=== PATIENT | female | born 1995 | race Caucasian/White ===

== ENCOUNTER 2021-10-29 04:34 | Inpatient (IN) ==
[2021-10-29] MEDS ORDERED: OXYTOCIN 30 UNITS/500 ML BAG IV PRN ×3 (05:01→16:31)
--- NOTE | 2021-10-29 05:04 | History & Physical Report ---
Date of Service October 29, 2021 Assessment & Plan (1) with 39 completed weeks gestation: (2) Normal labor: Plan admit, fetus category one, now in labor, desires epidural. arom/pit as indicated. anticipate . History of Present Illness Chief Complaint: worsening contractions Primary Care Provider: Jennifer Jeter PA-C Patient is a 26yowf with iup at 39 3/7 weeks who presents to labor and delivery with worsening contractions. Notes some bloody show/mucous d/c. +fm and Delivery Plans FOB history of aortic stenosis and bicuspid valve - [place] [facility] [place] S/p COVID vaccine - pfizer x 2 doses, aware that booster is recommended OB Labs: Blood Type O Positive 03/26/21 Antibody Screen NEGATIVE 03/26/21 Hemoglobin 11.1 g/dL (12.0-16.0) L 08/16/21 Hematocrit 32.4 % (37-47) L 08/16/21 Mean Corpuscular Volume 91.3 fL (80-100) 03/26/21 Platelet Count 193 K/uL (130-400) 03/26/21 Rubella IgG Antibody Immune (Immune) 03/26/21 Rapid Plasma Reagin Nonreactive (Nonreactive) 03/26/21 Hepatitis B Surface Antigen Neg (Neg) 03/26/21 Hepatitis C Antibody Neg (Neg) 03/26/21 HIV (1&2) Ab and P24 Ag, 4th Gener Neg (Neg) 03/26/21 Glucose 1 Hour 50 gm Load 158 mg/dl (70-130) H 08/16/21 OB Optional Labs: Chlamydia trachomatis RNA NOT DETECTED (NOT DETECTED) 03/26/21 Neisseria gonorrhoeae RNA NOT DETECTED (NOT DETECTED) 03/26/21 Labs Reviewed: declines cf/sma - sln low risk panorama neg gbs dec afp Allergies Allergy/AdvReac Type Severity Reaction Status Date / Time amitriptyline AdvReac seizure Verified 10/28/21 14:51 Home Medications Medication Instructions Recorded Confirmed Type citalopram 40 mg tablet (Celexa) 40 mg PO HS 09/27/19 10/28/21 History prenat.vits,michelle,uig-bslr-opgru 1 tab PO HS 12/14/20 10/28/21 History (KPN tablet) Patient History Medical History Anxiety Functional ovarian cysts Varicella vaccine Surgical History [place] teeth extracted Family History Grandmother (Paternal) No problems noted. Mother Hypertension Brother Hypertension Other Diabetes Denies family history of Ovarian cancer Prostate cancer Breast cancer Lung cancer Colorectal cancer Cancer Uterine cancer Social History Smoking Status: Never smoker Hx Alcohol Use: No Hx Substance Use: No Preferred Language: [employer] Required: No Beliefs That Will Affect Care: None marital status: marital status details: Ricky Wiggins ([place]) [phone] Current Living Situation: Spouse Current Living Situation Comment: FOB. 2 dogs and 1 cat (FOB changing litter) current occupational status: employed current occupation: [employer] director Other Information That Helps Us Care for You: No Feels Safe at Home: Yes Safety Concerns: Feels Safe At This Time Diet Comment: eats seafood Physical Activity Frequency: Daily Physical Activity Frequency Comment: runs OB History g1--present [employer] History noncontributory Physical Exam Constitutional: WD/WN, vitals as above Cardiovascular: Extremities: no calf tenderness and no edema Gastrointestinal (Abdomen): soft, gravid, nt Psychiatric: A+Ox3, euthymic affect Genitourinary: cx--4/100/-2 toco--q2-5min efm--130s with mod variabiltiy, small accels, no decels. Results & Data ([facility]) Vital Signs (Past 12 Hours) Vital Signs Pulse BP 10/29/21 04:50 69 159/89 H Coding Level of Care Code None Diagnoses with 39 completed weeks gestation Z3A.39 Normal labor O80; Z37.9
[2021-10-29] MEDS: LACTATED RINGER'S 1,000 ML IV PRN ×4 (05:15→15:03)
[2021-10-29] MEDS ORDERED: ePHEDrine sulfate 50 MG/ML AMP ONE (05:49)
[2021-10-29] MEDS ORDERED: fentaNYL citrate 100 MCG/2 ML VIAL ONE (05:49)
[2021-10-29] MEDS ORDERED: BUPIVACAINE 0.25% 30 ML VIAL ONE (05:50)
[2021-10-29] MEDS ORDERED: SODIUM CHLORIDE 0.9% INJ 10 ML VIAL ONE (05:50)
[2021-10-29] MEDS ORDERED: fentaNYL 2MCG/ML ROPIVACAINE 1.25MG/ML 100 ML BAG EPI ONE (05:50)
[2021-10-29] MEDS ORDERED: LIDOCAINE 2%/EPINEPHRINE 1:200,000 20 ML SDV ONE (05:50)
[2021-10-29 05:51] LABS: Hematocrit (blood only) 34.6 % (34.1-44.9); Hemoglobin 11.7 g/dl (12.0-16.0); Mean Corpuscular Hgb Conc 33.8 g/dL (32.0-36.0); Mean Corpuscular Volume 94.5 fL (80.0-100.0); Mean Platelet Volume 10.9 fL (9.4-12.3); Platelet Count 159 K/uL (130-400); RDW Coefficient of Variation 13.3 % (11.5-14.5); RDW Standard Deviation 45.7 fL (36.4-46.3); Red Blood Count 3.66 M/uL (3.93-5.22); White Blood Count 12.96 K/ul (4.8-10.8)
[2021-10-29] MEDS ORDERED: fentaNYL 2MCG/ML ROPIVACAINE 1.25MG/ML 100 ML BAG EPI PRN (06:04)
[2021-10-29] MEDS ORDERED: NALOXONE HCL 0.4 MG/1 ML VIAL/CARP IV PRN (06:04)
[2021-10-29] MEDS ORDERED: NALOXONE HCL 1 MG in SODIUM CHLORIDE 0.9% 1000ML 1,000 ML IV PRN (06:04)
[2021-10-29] MEDS ORDERED: diphenhydrAMINE 50 MG/ML VIAL IV PRN (06:04)
[2021-10-29] MEDS ORDERED: ONDANSETRON INJ 2 MG/ML 2 ML VIAL IV PRN (06:04)
[2021-10-29] MEDS ORDERED: NALBUPHINE HCL INJ 10 MG/ML AMP IV PRN (06:04)
[2021-10-29] MEDS ORDERED: ePHEDrine sulfate 50 MG/ML AMP IV PRN (06:04)
--- NOTE | 2021-10-29 06:06 | Anesthesiology Consultation ---
Date of Service October 29, 2021 Assessment & Plan (1) Encounter for pre-operative examination: Chart Review Chart Review: Patient NOT seen in Pre Admission Testing and Acceptable Risk for Labor Epidural Consults Requested none History Height/Weight Height: 5 ft 6 in Weight: 81.647 kg Allergies Allergy/AdvReac Type Severity Reaction Status Date / Time amitriptyline AdvReac seizure Verified 10/28/21 14:51 Medications Home Medications Medication Instructions Recorded Confirmed Last Taken citalopram 40 mg tablet (Celexa) 40 mg PO HS 09/27/19 10/28/21 12/15/20 prenat.vits,michelle,yzt-gary-jfakh 1 tab PO HS 12/14/20 10/28/21 12/15/20 (KPN tablet) Active Medications Generic Name Dose Route Start Last Admin Trade Name Freq PRN Reason Stop Dose Admin Lactated Ringer's 1,000 mls @ 125 mls/hr 10/29/21 05:01 10/29/21 06:16 Lr IV 10/31/21 05:00 125 mls/hr .Q8H PRN Administration L&D Protocol Protocol Past Medical History Medical History Anxiety Functional ovarian cysts Varicella vaccine Exercise / Class Metabolic Activity II 4-5 Yardwork/Stairs/Walk up hill Past Family History Family History Grandmother (Paternal) No problems noted. Mother Hypertension Brother Hypertension Other Diabetes Denies family history of Ovarian cancer Prostate cancer Breast cancer Lung cancer Colorectal cancer Cancer Uterine cancer Past Surgical History Surgical History [place] teeth extracted Past Anesthesia History No Hx of Anesthesia Complications and No Family Hx of Anesthesia Complications Social History Smoking Status: Never smoker Hx Alcohol Use: No Hx Substance Use: No Physical Exam Vital Signs Last Vital Signs Temp 36.5 C 10/29/21 04:59 Pulse 80 10/29/21 06:24 Resp 20 10/29/21 04:59 BP 129/65 10/29/21 06:24 Pulse Ox 100 10/29/21 06:24 Testing Laboratory Results 10/29/21 05:29
--- NOTE | 2021-10-29 07:13 | Labor Progress Brief Note ---
Date of Service October 29, 2021 Subjective comfortable with epidural Assessment & Plan (1) Normal labor: Plan doing well, fetus category one, continue expectant management. anticipate . Admission and Anticipated Discharge Date Admission Date: October 29, 2021 Physical Exam Physical Exam: cx--5-6/100/-2 arom--clear toco--q2-4min efm--130s wtih mod variabiltiy, accels to 150s, no decels Results & Data ([facility]) Vital Signs (Past 12 Hours) Vital Signs Temp Pulse Resp BP Pulse Ox 10/29/21 07:09 80 119/64 98 10/29/21 07:08 89 88 L 10/29/21 07:04 85 97 10/29/21 06:59 79 97 10/29/21 06:54 84 98 10/29/21 06:51 79 136/72 10/29/21 06:49 76 98 10/29/21 06:48 72 139/70 10/29/21 06:44 74 98 10/29/21 06:45 74 137/69 10/29/21 06:42 69 140/78 10/29/21 06:39 73 139/72 98 10/29/21 06:36 70 144/77 H 10/29/21 06:34 70 100 10/29/21 06:33 79 142/77 H 10/29/21 06:29 71 100 10/29/21 06:30 69 143/76 H 10/29/21 06:27 74 140/72 10/29/21 06:24 100 10/29/21 06:24 80 10/29/21 06:24 71 129/65 10/29/21 06:21 80 136/74 10/29/21 06:19 78 100 10/29/21 06:14 85 99 10/29/21 04:59 20 10/29/21 04:59 36.5 C 20 10/29/21 04:50 69 159/89 H Coding Level of Care Code None Diagnoses Normal labor O80; Z37.9
--- NOTE | 2021-10-29 07:43 | Labor Progress Brief Note ---
Date of Service October 29, 2021 Subjective pt resting comfortably Assessment & Plan (1) with 39 completed weeks gestation: (2) Normal labor: Plan pt aware i am taking over care. arom at 7am, will see if ctx become more regul ar. if not will plan pitocin. efw 7-8# Admission and Anticipated Discharge Date Admission Date: October 29, 2021 Physical Exam Constitutional: WD/WN, vitals as above Genitourinary: OB Exam Monitor Tracing: + external FHT monitor used, + external uterine monitor used (q2-4), + category I and + normal FHT variability Results & Data ([facility]) Vital Signs (Past 12 Hours) Vital Signs Temp Pulse Resp BP Pulse Ox 10/29/21 07:39 78 97 10/29/21 07:40 77 119/58 L 10/29/21 07:30 18 10/29/21 07:30 18 10/29/21 07:34 73 96 10/29/21 07:29 79 96 10/29/21 07:24 81 96 10/29/21 07:23 80 116/56 L 10/29/21 07:05 18 10/29/21 07:05 97.9 F 18 10/29/21 07:19 77 97 10/29/21 07:14 75 97 10/29/21 07:09 80 119/64 98 10/29/21 07:08 89 88 L 10/29/21 07:04 85 97 10/29/21 06:59 79 97 10/29/21 06:54 84 98 10/29/21 06:51 79 136/72 10/29/21 06:49 76 98 10/29/21 06:48 72 139/70 10/29/21 06:44 74 98 10/29/21 06:45 74 137/69 10/29/21 06:42 69 140/78 10/29/21 06:39 73 139/72 98 10/29/21 06:36 70 144/77 H 10/29/21 06:34 70 100 10/29/21 06:33 79 142/77 H 10/29/21 06:29 71 100 10/29/21 06:30 69 143/76 H 10/29/21 06:27 74 140/72 10/29/21 06:24 100 10/29/21 06:24 80 10/29/21 06:24 71 129/65 10/29/21 06:21 80 136/74 10/29/21 06:19 78 100 10/29/21 06:14 85 99 10/29/21 04:59 20 10/29/21 04:59 97.7 F 20 10/29/21 04:50 69 159/89 H Coding Level of Care Code None Diagnoses with 39 completed weeks gestation Z3A.39 Normal labor O80; Z37.9
--- NOTE | 2021-10-29 10:40 | Labor Progress Brief Note ---
Date of Service October 29, 2021 Subjective some LLQ discomfort. Assessment & Plan (1) with 39 completed weeks gestation: (2) Normal labor: Plan good cx change. fhts categ 1. c/w pit. Admission and Anticipated Discharge Date Admission Date: October 29, 2021 Physical Exam Constitutional: WD/WN, vitals as above Genitourinary: Manual OB Exam: + cervical dilation 8 cm, + cervical effacement 100% and + station 0 OB Exam Monitor Tracing: + external FHT monitor used, + external uterine monitor used (q2 pit at 3), + category I and + normal FHT variability Results & Data ([facility]) Vital Signs (Past 12 Hours) Vital Signs Temp Pulse Resp BP Pulse Ox 10/29/21 10:34 75 98 10/29/21 10:29 72 97 10/29/21 10:24 78 132/67 96 10/29/21 10:19 82 97 10/29/21 10:14 76 96 10/29/21 10:09 80 97 10/29/21 10:08 82 133/69 10/29/21 10:04 78 96 10/29/21 09:59 79 96 10/29/21 09:54 96 10/29/21 09:54 80 10/29/21 09:54 74 18 132/76 10/29/21 09:49 83 96 10/29/21 09:44 79 97 10/29/21 09:39 98 10/29/21 09:39 88 10/29/21 09:39 85 137/74 10/29/21 09:34 78 97 10/29/21 09:29 82 98 10/29/21 09:24 77 96 10/29/21 09:23 73 124/65 10/29/21 09:19 77 97 10/29/21 09:00 18 10/29/21 09:00 97.9 F 18 10/29/21 09:14 73 96 10/29/21 09:09 96 H 97 10/29/21 09:08 69 127/61 10/29/21 09:04 76 97 10/29/21 08:59 79 97 10/29/21 08:54 84 97 10/29/21 08:55 78 121/58 L 10/29/21 08:49 75 97 10/29/21 08:44 75 97 10/29/21 08:39 82 107/57 L 97 10/29/21 08:30 18 10/29/21 08:30 18 10/29/21 08:34 80 96 10/29/21 08:29 86 96 10/29/21 08:24 96 10/29/21 08:24 77 10/29/21 08:24 78 121/57 L 10/29/21 08:19 83 96 10/29/21 08:16 73 94 10/29/21 08:14 74 95 10/29/21 08:00 18 10/29/21 08:00 18 10/29/21 08:10 73 126/59 L 10/29/21 08:09 77 94 10/29/21 08:04 94 10/29/21 08:04 72 10/29/21 08:04 71 94 10/29/21 07:59 77 95 10/29/21 07:55 70 116/58 L 10/29/21 07:54 72 95 10/29/21 07:49 76 95 10/29/21 07:44 78 95 10/29/21 07:39 78 97 10/29/21 07:40 77 119/58 L 10/29/21 07:30 18 10/29/21 07:30 18 10/29/21 07:34 73 96 10/29/21 07:29 79 96 10/29/21 07:24 81 96 10/29/21 07:23 80 116/56 L 10/29/21 07:05 18 10/29/21 07:05 97.9 F 18 10/29/21 07:19 77 97 10/29/21 07:14 75 97 10/29/21 07:09 80 119/64 98 10/29/21 07:08 89 88 L 10/29/21 07:04 85 97 10/29/21 06:59 79 97 10/29/21 06:54 84 98 10/29/21 06:51 79 136/72 10/29/21 06:49 76 98 10/29/21 06:48 72 139/70 10/29/21 06:44 74 98 10/29/21 06:45 74 137/69 10/29/21 06:42 69 140/78 10/29/21 06:39 73 139/72 98 10/29/21 06:36 70 144/77 H 10/29/21 06:34 70 100 10/29/21 06:33 79 142/77 H 10/29/21 06:29 71 100 10/29/21 06:30 69 143/76 H 10/29/21 06:27 74 140/72 10/29/21 06:24 100 10/29/21 06:24 80 10/29/21 06:24 71 129/65 10/29/21 06:21 80 136/74 10/29/21 06:19 78 100 10/29/21 06:14 85 99 10/29/21 04:59 20 10/29/21 04:59 97.7 F 20 10/29/21 04:50 69 159/89 H Coding Level of Care Code None Diagnoses with 39 completed weeks gestation Z3A.39 Normal labor O80; Z37.9
--- NOTE | 2021-10-29 16:10 | Delivery Summary ---
Vaginal Delivery Summary Date of Service October 29, 2021 Vaginal Delivery Summary The patient dilated to complete and pushed to deliver a viable female Apgars pending via over mediolateral episiotomy. Mouth and nose bulb suctioned at perineum. Posterior shoulder wrapped around cephalic and delivered first then remaining shoulder and body delivered with ease. cried at about 30 sec of life. Cord clamped at 30 seconds of life and infant to maternal abdomen where the cord was then doubly clamped and cut. Short cord noted. Baby taken to warmer for attention. Placenta delivered spontaneously and intact, three-vessel cord. Hemostasis achieved with dilute pitocin and uterine massage and drainage of the bladder for approximately 120 cc under sterile conditions. Episiotomy repaired in routine fashion with 3-0 vicryl. Cervix and sulci intact. EBL 300 cc. Mother stable in recovery. Baby taken to nursery for further care. [facility] [place] Vaginal Delivery Charge Delivery Type Details: [facility]
[2021-10-29] MEDS ORDERED: oxyCODONE/ACETAMINOPHEN 5mg/325mg TAB PO PRN (16:31)
[2021-10-29] MEDS ORDERED: DIPHTHERIA/TETANUS/PERTUSSIS 0.5 ML SYR/VIAL IM ONE (16:31)
[2021-10-29] MEDS ORDERED: ACETAMINOPHEN 325 MG TAB PO PRN (16:31)
[2021-10-29] MEDS ORDERED: HYDROCORTISONE ACETATE 25 MG SUPP PR PRN (16:31)
[2021-10-29] MEDS ORDERED: BENZOCAINE 20% AER SPR 82.5 GM CAN EXT PRN (16:31)
[2021-10-29] MEDS ORDERED: OXYTOCIN 20 UNITS in LACTATED RINGER'S 1,000 ML IV SCH (16:45)
--- NOTE | 2021-10-29 17:02 | Anesthesia Procedure Note ---
Date of Service October 29, 2021 Anesthesia Post Epidural Note Vital Signs Vital Signs: Temp Pulse Resp BP Pulse Ox 36.7 C 75 18 137/85 97 10/29/21 16:05 10/29/21 16:53 10/29/21 16:50 10/29/21 16:53 10/29/21 15:54 Pain Intensity Abdomen: Pain Intensity: 0 Notes Mental Status: alert / awake / arousable and participated in evaluation Nausea / Vomiting: adequately controlled Pain: adequately controlled Airway Patency, RR, SpO2: stable & adequate BP & HR: stable & adequate Hydration State: stable & adequate Neuraxial Anesthesia: was administered and sensory block is resolving Anesthetic Complications: no major complications apparent and Pt Satisfied with anesthetic care Epidural: Removed without complications and With tip intact
[2021-10-29] MEDS: IBUPROFEN 600 MG TAB PO PRN ×2 (17:41→21:18)
[2021-10-29] MEDS: DOCUSATE SODIUM 100 MG CAP PO SCH (21:18)
[2021-10-29] MEDS: CITALOPRAM 40 MG TAB PO SCH (21:18)
--- NOTE | 2021-10-30 05:28 | Obstetrical Progress Note ---
Date of Service <Nichole Cruz DO - Last Filed: 10/30/21 06:35> October 30, 2021 Assessment & Plan <Nichole Cruz DO - Last Filed: 10/30/21 06:35> (1) Normal labor: (2) Irregular contractions: (3) with 39 completed weeks gestation: (4) Encounter for supervision of normal intrauterine in primigravida, antepartum: Plan s/p PPD 1: -Vital signs reviewed and WNL, Tmax at 37.0 -Hemoglobin reviewed, 11.7 (10/29) -O+, GBS-, rubella immune -Encourage ambulation, monitor and treat pain with motrin PRN, monitor lochia -Continue regular diet -Encourage breast feeding <Eulalia Reina MD, FACOG - Last Filed: 10/30/21 07:45> (1) Normal labor: (2) Irregular contractions: (3) with 39 completed weeks gestation: (4) Encounter for supervision of normal intrauterine in primigravida, antepartum: Subjective <Nichole Cruz DO - Last Filed: 10/30/21 06:35> Therese is a 26 y/o female who is PPD #1 following at 39 3/7 weeks. Patient was seen and examined at bedside. She reports feeling well overall this morning. Denies abdominal cramping & 1/10 pain well managed on analgesics. States she just has vaginal pressure but not pain. Voiding without issue. Tolerating meals overnight and able to ambulate some. Has some persistent lochia with some improvement this morning. Currently breast feeding. Constitutional: no fever, no chills or no sweats Respiratory: no cough, no dyspnea or no wheezing Cardiovascular: no chest pain, no palpitations or no calf pain Breast: no breast pain Genitourinary (female): no dysuria Neurologic: no headache(s) Physical Exam <Nichole Cruz DO - Last Filed: 10/30/21 06:35> Constitutional WD/WN, vitals as above no acute distress Respiratory no respiratory distress Auscultation: lungs clear to auscultation bilaterally; no rales, no rhonchi and no wheezes Cardiovascular RRR, no murmur, no edema Extremities: no calf tenderness and no edema Negative Francisco's sign bilaterally. Gastrointestinal (Abdomen) Inspection/Auscultation: normal bowel sounds Genitourinary Uterine fundus firm, palpable below the umbilicus. Results & Data ([facility]) <Nichole Cruz DO - Last Filed: 10/30/21 06:35> Vital Signs (Past 12 Hours) Vital Signs Temp Pulse Pulse Resp BP BP Pulse Ox 10/30/21 03:30 36.5 C 85 18 138/88 100 10/29/21 20:00 36.9 C 80 16 134/82 98 10/29/21 23:56 36.8 C 82 16 125/72 97 10/29/21 18:57 36.7 C 18 10/29/21 18:05 36.9 C 18 10/29/21 17:35 18 10/29/21 18:57 81 121/66 10/29/21 18:08 80 150/74 H O2 Del Method 10/30/21 03:30 Room Air 10/29/21 20:00 Room Air 10/29/21 23:56 10/29/21 18:57 10/29/21 18:05 10/29/21 17:35 10/29/21 18:57 10/29/21 18:08 <Eulalia Reina MD, FACOG - Last Filed: 10/30/21 07:45> Co-Signing Physician Notes Resident Physician Supervision Note: I was present with Dr. Cruz during the history and exam. I discussed the case with the resident and agree with the findings and plan as documented in the note. Any exceptions or clarifications are listed here: stable, eating, voiding, ambul without prob. bottom sore. reviewed episiotomy. ff 2 down nt. ext nt calves. ppd#1 s/p , routine care. rh pos, ri. . reviewed care of laceration and typical expectations for bleeding. Documented By: Eulalia Reina MD, FACOG Resident Activity Tracking <Nichole Cruz DO - Last Filed: 10/30/21 06:35> Resident Involvement: Resident Care Provided Care Provided: OB Delivery
[2021-10-30] MEDS: PRENATAL VITAMIN 1 TAB PO SCH (07:27)
[2021-10-30] MEDS: DOCUSATE SODIUM 100 MG CAP PO SCH ×2 (07:27→21:37)
[2021-10-30] MEDS: IBUPROFEN 600 MG TAB PO PRN ×3 (07:27→21:38)
[2021-10-30 08:37] VITALS: O2SAT 98
[2021-10-30] MEDS: CITALOPRAM 40 MG TAB PO SCH (21:37)
--- NOTE | 2021-10-31 06:20 | Obstetrical Progress Note ---
Date of Service <Nichole Cruz DO - Last Filed: 10/31/21 06:57> October 31, 2021 Assessment & Plan <Nichole Cruz DO - Last Filed: 10/31/21 06:57> (1) Normal labor: (2) Irregular contractions: (3) with 39 completed weeks gestation: (4) Encounter for supervision of normal intrauterine in primigravida, antepartum: Plan s/p PPD 1: -Vital signs reviewed and WNL, Tmax at 37.0 -Hemoglobin reviewed, 11.7 (10/29) -O+, GBS-, rubella immune -Encourage ambulation, monitor and treat pain with motrin PRN, monitor lochia -Continue regular diet -Encourage breast feeding <Urszula Barlow, - Last Filed: 10/31/21 08:03> (1) Normal labor: (2) Irregular contractions: (3) with 39 completed weeks gestation: (4) Encounter for supervision of normal intrauterine in primigravida, antepartum: Subjective <Nichole Cruz DO - Last Filed: 10/31/21 06:57> Therese is a 26 y.o. female who is PPD #2 from at 39 3/7 weeks. Patient was seen and examined at bedside. States she is feeling well overall today. Experiencing vaginal pressure but not pain but notes some abdominal cramping especially with breast feeding, pain is well controlled with analgesics. Tolerated meals overnight, no nausea or vomiting. Voiding without an issue. Has been able to ambulate some. Has noticed decreased bleeding compared to yesterday. Is currently breast feeding. Constitutional: no fever, no chills or no sweats Respiratory: no cough, no dyspnea or no wheezing Cardiovascular: no chest pain, no palpitations or no calf pain Breast: no breast pain Genitourinary (female): no dysuria Neurologic: no headache(s) Physical Exam <Nichole Cruz DO - Last Filed: 10/31/21 06:57> Constitutional WD/WN, vitals as above no acute distress Respiratory no respiratory distress Auscultation: lungs clear to auscultation bilaterally; no rales, no rhonchi and no wheezes Cardiovascular RRR, no murmur, no edema Extremities: no calf tenderness and no edema Gastrointestinal (Abdomen) Inspection/Auscultation: normal bowel sounds Genitourinary Uterine fundus firm, palpable below umbilicus Results & Data ([facility]) <Nichole Cruz, - Last Filed: 10/31/21 06:57> Vital Signs (Past 12 Hours) Vital Signs Temp Pulse Resp BP Pulse Ox O2 Del Method 10/30/21 21:00 36.6 C 75 16 128/74 98 Room Air <Urszula Barlow, - Last Filed: 10/31/21 08:03> Co-Signing Physician Notes Resident Physician Supervision Note: I was present with Dr. Cruz during the history and exam. I discussed the case with the resident and agree with the findings and plan as documented in the note. Any exceptions or clarifications are listed here: PPD#2 doing well, reviewed DC instructions. Followup 6w. Documented By: Urszula Barlow DO
[2021-10-31] MEDS: PRENATAL VITAMIN 1 TAB PO SCH (08:16)
[2021-10-31] MEDS: DOCUSATE SODIUM 100 MG CAP PO SCH (08:16)
[2021-10-31] MEDS: IBUPROFEN 600 MG TAB PO PRN (08:16)
[2021-10-31 09:38] VITALS: BP 128/72; PULSE 92; TEMP 98.1
== END 2021-10-31 12:00 | disposition home or self-care (01) | DRG 807 ==
LOC: OPB 04:34 → 4S1 04:37 → 4E2 19:46
DX: O80 Encounter for full-term uncomplicated delivery; Z3A.39 39 weeks gestation of pregnancy; Z37.0 Single live birth

== ENCOUNTER 2024-04-17 11:13 | Inpatient (IN) ==
[2024-04-17] MEDS ORDERED: OXYTOCIN 30 UNITS/NSS 30 UNITS/500 ML BAG IV PRN (12:28)
[2024-04-17] MEDS ORDERED: LIDOCAINE 1% LOCAL 20 ML VIAL INFIL PRN (12:28)
[2024-04-17] MEDS ORDERED: CALCIUM CARBONATE 500 MG CHEWABLE TAB PO PRN (12:28)
[2024-04-17] MEDS: PENICILLIN GK 6 MU in SODIUM CHLORIDE 0.9% 250 ML IV STA (13:10)
[2024-04-17 13:39] LABS: Hematocrit (blood only) 37.3 % (37.0-47.0); Hemoglobin 12.8 g/dl (12.0-16.0); Mean Corpuscular Hemoglobin 32.2 pg (25.0-34.0); Mean Corpuscular Hgb Conc 34.3 g/dL (32.0-36.0); Mean Platelet Volume 11.4 fL (9.4-12.4); Platelet Count 148 K/uL (130-400); RDW Coefficient of Variation 12.9 % (11.5-14.5); RDW Standard Deviation 44.4 fL (36.4-46.3); Red Blood Count 3.97 M/uL (4.20-5.40); White Blood Count 9.67 K/ul (4.8-10.8)
[2024-04-17] MEDS: OXYTOCIN 30 UNITS/NSS 30 UNITS/500 ML BAG IV PRN ×2 (15:23→19:28)
[2024-04-17] MEDS: SODIUM CHLORIDE 0.9% 1,000 ML IV SCH (15:23)
[2024-04-17] MEDS: PENICILLIN GK 3 MU in DEXTROSE 5% 100 ML IV PRN (17:01)
[2024-04-17] MEDS ORDERED: diphenhydrAMINE 50 MG/ML VIAL IV PRN (18:04)
[2024-04-17] MEDS ORDERED: SODIUM CHLORIDE 0.9% PF INJ 10 ML VIAL EPI PRN (18:04)
[2024-04-17] MEDS ORDERED: NALOXONE HCL 1 MG in SODIUM CHLORIDE 0.9% 1,000 ML IV PRN (18:04)
[2024-04-17] MEDS ORDERED: SODIUM CHLORIDE 0.9% PF INJ 10 ML VIAL EPI STA (18:04)
[2024-04-17] MEDS ORDERED: ROPIVACAINE 0.5% PF 5 MG/ML 20 ML VIAL EPI PRN (18:04)
[2024-04-17] MEDS ORDERED: ePHEDrine sulfate 50 MG/ML AMP IV PRN (18:04)
[2024-04-17] MEDS ORDERED: NALBUPHINE HCL INJ 10 MG/ML AMP IV PRN (18:04)
[2024-04-17] MEDS ORDERED: LIDOCAINE 2% MPF LOCAL 5 ML VIAL EPI PRN (18:04)
[2024-04-17] MEDS ORDERED: BUPIVACAINE 0.25% PF 30 ML VIAL EPI PRN (18:04)
[2024-04-17] MEDS ORDERED: NALOXONE HCL 0.4 MG/1 ML VIAL/CARP IV PRN (18:04)
[2024-04-17] MEDS ORDERED: fentaNYL citrate PF 100 MCG/2 ML VIAL EPI PRN (18:04)
--- NOTE | 2024-04-17 18:04 | Anesthesiology Consultation ---
Date of Service April 17, 2024 Assessment & Plan Chart Review Chart Review: Patient NOT seen in Pre Admission Testing and Acceptable Risk for Labor Epidural Consults Requested none History Height/Weight Height: 5 ft 6 in Weight: 87.09 kg Allergies Allergy/AdvReac Type Severity Reaction Status Date / Time amitriptyline AdvReac seizure Verified 04/12/24 10:07 Medications Home Medications Medication Instructions Recorded Confirmed Last Taken citalopram 40 mg tablet (Celexa) 40 mg PO HS 09/27/19 04/17/24 04/16/24 vits no.124-ferrous fum 1 tab PO DAILY 04/17/24 04/17/24 04/17/24 27 mg iron-folic acid 800 mcg tablet ( Vitamin) Active Medications Generic Name Dose Route Start Last Admin Trade Name Freq PRN Reason Stop Dose Admin Penicillin G Potassium 3 mu/ 106 mls @ 100 mls/hr 04/17/24 16:30 04/17/24 17:01 Dextrose IV 04/27/24 16:29 100 mls/hr Q4H PRN Administration GBS(+) Until Delivery Sodium Chloride 1,000 mls @ 50 mls/hr 04/17/24 13:15 04/17/24 17:40 Nss IV 04/18/24 13:14 999 mls/hr .Q20H VINITA Infusion Oxytocin 30 units in 500 mls @ 6 mls/hr 04/17/24 15:02 04/17/24 16:30 Pitocin 30 Units/Nss IV 04/19/24 15:01 0.36 units/hr .Q24H PRN 6 mls/hr Labor Induction/Augmentation Titration Protocol 0.36 UNITS/HR Past Medical History Medical History Functional ovarian cysts Varicella vaccine Past Family History Family History Grandmother (Paternal) No problems noted. Mother Hypertension Brother Hypertension Other Diabetes Denies family history of Ovarian cancer Prostate cancer Breast cancer Lung cancer Colorectal cancer Cancer Uterine cancer Past Surgical History Surgical History [place] teeth extracted Social History Smoking Status: Never smoker Do You Dip or Chew Tobacco: No Hx Alcohol Use: No Hx Substance Use: No substance use type: does not use Physical Exam Vital Signs Last Vital Signs Temp 98.4 F 04/17/24 17:11 Pulse 65 04/17/24 18:02 Resp 20 04/17/24 17:30 BP 129/77 04/17/24 17:02 Pulse Ox 99 04/17/24 18:02 Testing Laboratory Results 04/17/24 12:48
[2024-04-17] MEDS: fentANYL 2 MCG/ML BUPIVacaine 0.125%-NSS 100ML BAG EPI PRN (18:11)
[2024-04-17] MEDS: fentaNYL citrate PF 100 MCG/2 ML VIAL EPI STA (18:20)
[2024-04-17] MEDS: BUPIVACAINE 0.25% PF 30 ML VIAL EPI STA (18:20)
[2024-04-17] MEDS: LIDOCAINE 2%/EPINEPHRINE 1:200,000 20 ML PF EPI STA (18:20)
[2024-04-17] MEDS: SODIUM CHLORIDE 0.9% PF INJ 10 ML VIAL ONE (18:27)
[2024-04-17] MEDS: LIDOCAINE 2%/EPINEPHRINE 1:200,000 20 ML PF ONE (18:27)
[2024-04-17] MEDS: fentANYL 2 MCG/ML BUPIVacaine 0.125%-NSS 100ML BAG ONE (18:27)
[2024-04-17] MEDS: BUPIVACAINE 0.25% PF 30 ML VIAL ONE (18:27)
[2024-04-17] MEDS: fentaNYL citrate PF 100 MCG/2 ML VIAL ONE (18:27)
[2024-04-17] MEDS: ePHEDrine sulfate 50 MG/ML AMP ONE (18:27)
--- NOTE | 2024-04-17 19:06 | Delivery Summary ---
Vaginal Delivery Summary Date of Service April 17, 2024 Vaginal Delivery Summary and 1st Degree LAC Spontaneous vaginal delivery the patient arrived in active labor group B strep positive antibiotics were initiated she did require some Pitocin augmentation and then requested epidural when fully dilated she delivered a baby in occiput anterior position after head was delivered there was no nuchal cord fluid was clear gentle traction the baby combined with maternal expulsive efforts resulted in easy delivery no excessive force live vigorous female cord clamped and cut cord blood obtained placenta removed without difficulty with traction IV Pitocin started uterine tone improved there was a small right Manjinder clitoral tear repaired with 3-0 Vicryl no other tearing estimated blood loss 200 mL sponge and instrument counts correct [facility] Vaginal Delivery Charge Delivery Type Details: and 1st Degree LAC
[2024-04-17] MEDS ORDERED: ACETAMINOPHEN 325 MG TAB PO PRN (19:14)
[2024-04-17] MEDS ORDERED: bisacodyL 10 MG SUPP PR PRN (19:14)
[2024-04-17] MEDS ORDERED: HYDROCORTISONE ACETATE 25 MG SUPP PR PRN (19:14)
[2024-04-17] MEDS: DIPHTHER/TETAN/PERTUS Vaccine (Tdap, Adol/Adult) 0.5mL IM ONE (19:26)
[2024-04-17] MEDS: BENZOCAINE 20% SPRY 85 APPLN/85 GM CAN EXT PRN (19:28)
--- NOTE | 2024-04-17 20:31 | Anesthesia Procedure Note ---
Date of Service April 17, 2024 Anesthesia Post Epidural Note Vital Signs Vital Signs: Temp Pulse Resp BP Pulse Ox O2 Del Method 98.4 F 63 18 136/78 98 Room Air 04/17/24 19:05 04/17/24 20:21 04/17/24 20:05 04/17/24 20:21 04/17/24 19:07 04/17/24 19:05 Notes Mental Status: alert / awake / arousable and participated in evaluation Nausea / Vomiting: adequately controlled Pain: adequately controlled Airway Patency, RR, SpO2: stable & adequate BP & HR: stable & adequate Hydration State: stable & adequate Neuraxial Anesthesia: was administered and sensory block is resolving Anesthetic Complications: no major complications apparent and Pt Satisfied with anesthetic care Epidural: Removed without complications and With tip intact
[2024-04-17] MEDS: IBUPROFEN 600 MG TAB PO PRN (21:11)
[2024-04-17] MEDS: DOCUSATE SODIUM 100 MG CAP PO SCH (21:11)
[2024-04-17] MEDS: CITALOPRAM 40 MG TAB PO SCH (22:19)
[2024-04-17 22:37] VITALS: RESP 16
[2024-04-18 06:10] LABS: Hematocrit (blood only) 32.1 % (37.0-47.0); Hemoglobin 11.3 g/dl (12.0-16.0); Mean Corpuscular Hgb Conc 35.2 g/dL (32.0-36.0); Mean Corpuscular Volume 93.9 fL (80.0-100.0); Mean Platelet Volume 11.1 fL (9.4-12.4); Platelet Count 135 K/uL (130-400); RDW Coefficient of Variation 12.7 % (11.5-14.5); RDW Standard Deviation 43.8 fL (36.4-46.3); Red Blood Count 3.42 M/uL (4.20-5.40)
--- NOTE | 2024-04-18 07:20 | Obstetrical Progress Note ---
Date of Service April 18, 2024 Assessment & Plan (1) Group B streptococcal infection during : day #1 meets discharge criteria doing well no extremity pain Subjective Ambulation: ambulating normally Voiding: no voiding problems Passing Gas:: Yes Diet Tolerance:: regular diet Lochia:: Small Physical Exam Constitutional WD/WN, vitals as above well developed and well nourished Respiratory normal respiratory effort, lungs clear to auscultation normal respiratory effort Cardiovascular RRR, no murmur, no edema Gastrointestinal (Abdomen) normal bowel sounds, soft, nontender, no hepatosplenomegaly Results & Data Vital Signs (Past 12 Hours) Vital Signs Temp Pulse Pulse Resp BP BP Pulse Ox 04/18/24 03:00 97.9 F 68 16 133/86 95 04/17/24 22:15 97.5 F L 99 H 16 128/80 98 04/17/24 21:45 18 04/17/24 21:06 65 142/77 H 04/17/24 21:05 18 04/17/24 20:51 68 136/65 04/17/24 20:36 66 141/68 H 04/17/24 20:35 18 04/17/24 20:21 63 136/78 04/17/24 20:06 72 122/65 04/17/24 20:05 18 04/17/24 19:51 74 129/64 04/17/24 19:50 18 04/17/24 19:36 64 131/61 04/17/24 19:35 18 04/17/24 19:21 72 130/64 04/17/24 19:20 18 O2 Del Method 04/18/24 03:00 Room Air 04/17/24 22:15 Room Air 04/17/24 21:45 04/17/24 21:06 04/17/24 21:05 04/17/24 20:51 04/17/24 20:36 04/17/24 20:35 04/17/24 20:21 04/17/24 20:06 04/17/24 20:05 04/17/24 19:51 04/17/24 19:50 04/17/24 19:36 04/17/24 19:35 04/17/24 19:21 04/17/24 19:20
[2024-04-18] MEDS: PRENATAL VITAMIN 1 TAB PO SCH (08:20)
[2024-04-18 11:59] VITALS: O2SAT 97
[2024-04-18 17:09] VITALS: BP 124/80; PULSE 75; TEMP 97.9
[2024-04-18] MEDS ORDERED: bisacodyL 5 MG TABEC PO SCH (20:00)
--- NOTE | 2024-04-19 08:38 | Coding Query ---
CODING QUERY To promote full compliance with coding requirements relating to patient care, provider participation is requested in all cases of debridging machine operator uncertainty. Please assist us with the question(s) below: Coding Question(s): Please specify below, the number of weeks of gestation of the upon admission: ( ) Specified number of weeks of gestation of upon admission was: Please Specify 39 ( ) Unknown number of weeks of gestation of upon admission 39 Physician's Response(s): Thank you Mckenna Castellanos Principal Diagnosis: "that condition established after study, to be chiefly responsible for occasioning the admission of the patient to the hospital for care." Co-Existing Principal Diagnosis: "when two or more diagnoses equally meet the criteria for principal diagnosis as determined by the circumstances of admission, diagnostic work up, and/or therapy provided, and the Alphabetic Index, Tabular List, or another coding guideline does not provide sequencing direction, any one of the diagnoses may be sequenced first." "When the physician has documented what appears to be a current diagnosis in the body of the record, but has not included the diagnosis in the final diagnostic statement, the physician should be asked whether the diagnosis should be added." (Source [facility]oding [facility] 2 QTR90. p3-4) MICHAEL
== END 2024-04-18 19:55 | disposition home or self-care (01) | DRG 807 ==
LOC: OPB 11:13 → 4S1 11:14 → 4E2 22:00